=== PATIENT | male | born 1955 | race Caucasian/White ===

== ENCOUNTER 2017-03-27 09:35 | Emergency (ER) | payer BC ==
[2017-03-27 09:57] VITALS: BP 118/74
--- NOTE | 2017-03-27 11:13 | UC ---
Skin Complaint HPI - HPI Summary HPI Summary: Pt c/o gradual onset of itchy, raised rash that began last night. Pt drank a glass of red wine and is concerned that he had an allergic reaction to the wine. Pt reports that he took 1 benadryl PO and rash improved. Pt woke this morning and noted that he had "rash all over his body" took another benadryl and rash resolved. Pt described that at time of rash "all over body" he noted tightness in chest and "itchy" throat. - History of Current Complaint Chief Complaint: UCAllergicReaction Time Seen by Provider: 03/27/17 10:23 Stated Complaint: RASH/DIFFICULTY BREATHING DURING NIGHT Hx Obtained From: Patient Onset/Duration: Gradual Onset, Lasting Hours, Resolved - since taking benadryl Skin Exposure Onset/Duration: Hours Ago Timing: Constant Onset Severity: Moderate Current Severity: None Pain Intensity: 0 Pain Scale Used: 0-10 Numeric Location: Diffuse Character: Hives Aggravating Factor(s): Nothing Alleviating Factor(s): Antihistamines Associated Signs & Symptoms: Positive: Throat Tightening, Rash Related History: Possible Reaction to: Food, Possible Reaction to: Animal, Possible Reaction to: Environmental Exposure - Allergy/Home Medications Allergies/Adverse Reactions: Allergies Allergy/AdvReac Type Severity Reaction Status Date / Time No Known Allergies Allergy Verified 03/27/17 09:46 Home Medications: Home Medications Hydrocortisone 1% CREAM* [Hytone Cream 1%*] 1 applic TOPICAL PRN 03/27/17 [ History] Lactobacillus [Probiotic] 1 cap PO DAILY 03/27/17 [History Confirmed 03/27/17] [id number]-Szhsgptgph-[id number] [Triple Antibiotic] 1 oin EX PRN 03/27/17 [History ] diPHENhydraMINE PO* [Benadryl PO 25 MG TAB*] 25 mg PO Q6H PRN 03/27/17 [History Confirmed 03/27/17] Review of Systems Constitutional: Negative Skin: Rash Eyes: Negative ENT: Negative Respiratory: Negative Cardiovascular: Negative Gastrointestinal: Negative Genitourinary: Negative Motor: Negative Neurovascular: Negative Musculoskeletal: Negative Neurological: Negative Psychological: Negative Is Patient Immunocompromised?: No All Other Systems Reviewed And Are Negative: Yes PMH/Surg Hx/FS Hx/Imm Hx Previously Healthy: Yes - Surgical History Surgical History: None - Family History Known Family History: Positive: Cardiac Disease - Social History Occupation: Employed Full-time Lives: With Family Alcohol Use: Rare Substance Use Type: Marijuana Substance Use Comment - Amount & Last Used: OCCASIONAL Smoking Status (MU): Never Smoked Tobacco Have You Smoked in the Last Year: No - Immunization History Vaccination Up to Date: No Physical Exam Triage Information Reviewed: Yes Appearance: Well-Appearing Vital Signs: Initial Vital Signs Temp 97.1 F 03/27/17 09:50 Pulse 59 03/27/17 09:50 Resp 18 03/27/17 09:50 BP 118/74 03/27/17 09:50 Pulse Ox 100 03/27/17 09:50 Vital Signs Reviewed: Yes Eye Exam: Normal ENT Exam: Normal Dental Exam: Normal Neck exam: Normal Respiratory Exam: Normal Cardiovascular Exam: Normal Abdominal Exam: Normal Musculoskeletal Exam: Normal Neurological Exam: Normal Psychological Exam: Normal Skin Exam: Normal Course/Dx - Course Course Of Treatment: I explained to the pat that he needs to follo annalee wioth his PCP and possibly with an restaurant crew member. I recommnded that he take a daily antihistamine and carry benadryl with him for treatment as needed. - Differential Diagnoses - Skin Complaint Differential Diagnoses: Contact Dermatitis, Urticaria - Diagnoses Provider Diagnoses: generalized allergic reaction Discharge - Discharge Plan Condition: Stable Disposition: HOME Prescriptions: Cetirizine* [ZyrTEC 10 MG TAB*] 10 mg PO DAILY #14 tab Patient Education Materials: General Allergic Reaction (ED) Referrals: Efren Addison MD [Primary Care Provider] - 1 Day Shelly Cuevas MD [Medical Doctor] - As Soon As Possible
== END 2017-03-27 10:58 | disposition home or self-care (01) ==
LOC: UCCORT 09:35
DX: T78.40XA Allergy, unspecified, initial encounter (principal); X58.XXXA Exposure to other specified factors, initial encounter; F12.90 Cannabis use, unspecified, uncomplicated
CPT/HCPCS: 99212; G0463

== ENCOUNTER 2018-04-25 15:23 | Emergency (ER) | payer BC ==
[2018-04-25 16:20] VITALS: BP 130/78
[2018-04-25] MEDS ORDERED: Fluorescein Sodium TOPICAL* 1 MG TEST STRIP OPHTHALMIC ONE (16:49)
--- NOTE | 2018-04-25 17:05 | UC ---
Eye Complaint HPI - HPI Summary HPI Summary: The patient is a 62-year-old male who got something in his eye while working with his horses. He suspects it may have been some maneuver. Initially he had mild photophobia and a foreign body sensation under his left upper lid. He still has some lid edema and some mild foreign body sensation. Eyes any photophobia he has had no tearing or purulent discharge. He has significant itching of his eye. He denies any blurred vision. - History of Current Complaint Chief Complaint: UCEye Stated Complaint: LEFT EYE ISSUE Time Seen by Provider: 04/25/18 16:43 Hx Obtained From: Patient Onset/Duration: Gradual Onset Timing: Constant Severity Initially: Mild Severity Currently: Mild Pain Intensity: 0 Pain Scale Used: 0-10 Numeric Location of Injury: Conjunctiva, Eye Lid (upper) Aggravating Factor(s): Nothing Alleviating Factor(s): Nothing Associated Signs And Symptoms: Positive: Swelling - left upper lid - Allergies/Home Medications Allergies/Adverse Reactions: Allergies Allergy/AdvReac Type Severity Reaction Status Date / Time No Known Allergies Allergy Verified 04/25/18 16:15 PMH/Surg Hx/FS Hx/Imm Hx Previously Healthy: Yes Cardiovascular History: Hypertension - life style controlled - Surgical History Surgical History: None - Family History Known Family History: Positive: Cardiac Disease - Social History Alcohol Use: None Substance Use Type: Marijuana Substance Use Comment - Amount & Last Used: OCCASIONAL Smoking Status (MU): Never Smoked Tobacco Have You Smoked in the Last Year: No - Immunization History Vaccination Up to Date: No Review of Systems All Other Systems Reviewed And Are Negative: Yes Constitutional: Positive: Negative Skin: Positive: Negative Eyes: Positive: Other - left eye itching ENT: Positive: Negative Respiratory: Positive: Negative Cardiovascular: Positive: Negative Gastrointestinal: Positive: Negative Genitourinary: Positive: Negative Motor: Positive: Negative Neurovascular: Positive: Negative Musculoskeletal: Positive: Negative Neurological: Positive: Negative Psychological: Positive: Negative Physical Exam Triage Information Reviewed: Yes Appearance: Well-Appearing, No Pain Distress, Well-Nourished Vital Signs: Initial Vital Signs Temp 97.9 F 04/25/18 16:15 Pulse 55 04/25/18 16:15 Resp 15 04/25/18 16:15 BP 130/78 04/25/18 16:15 Pulse Ox 100 04/25/18 16:15 Vital Signs Reviewed: Yes Eyes: Positive: Conjunctiva Inflamed - left upper palpebral/no fb noted, EOMI/ PERRL, flourescein staining (-) ENT: Positive: Hearing grossly normal. Negative: Nasal congestion, Nasal drainage, Trismus, Muffled voice, Hoarse voice Neck: Positive: Supple, Nontender Respiratory: Positive: Lungs clear, Normal breath sounds, No respiratory distress, No accessory muscle use Cardiovascular: Positive: RRR, No Murmur Musculoskeletal: Positive: ROM Intact, No Edema Neurological: Positive: Alert Psychological Exam: Normal Skin Exam: Normal Eye Complaint Course/Dx - Differential Dx/Diagnosis Provider Diagnosis: Allergic conjunctivitis Discharge - Sign-Out/Discharge Documenting (check all that apply): Patient Departure All imaging exams completed and their final reports reviewed: No Studies - Discharge Plan Condition: Stable Disposition: HOME Prescriptions: Fexofenadine (NF) [Mary (NF)] 60 mg PO QAM PRN #7 tab PRN Reason: Itching Patient Education Materials: Conjunctivitis (ED) Referrals: Efren Luevano MD [Medical Doctor] - 2 Days (if not better) Kiarra Beckford MD [Medical Doctor] - 2 Days (if not better) Additional Instructions: I suspect you have an allergic conjunctivitis to organic matter you got in your eye I suggest ZADITOR EYE DROPS (OTC) I suggest 2 25 mg benadryl at bedtime for itching see an eye MD in 2 days if not better sooner for new or worsening symptoms - Billing Disposition and Condition Condition: STABLE Disposition: Home
== END 2018-04-25 17:17 | disposition home or self-care (01) ==
LOC: UCCORT 15:23
DX: H10.12 Acute atopic conjunctivitis, left eye (principal); I10 Essential (primary) hypertension
CPT/HCPCS: 99212; A9270-GY; G0463

== ENCOUNTER 2018-08-12 14:40 | Emergency (ER) | payer BC ==
--- OUTSIDE RECORDS SUMMARY | 2018-08-12 14:55 | XMS REPORT | Continuity of Care Document ---
:1955 External Reference #:[id number] Author Name Judy Walker Care Team Providers Name Role Phone Efren Addison MD Care Team Information Animal Ecologist Unavailable Efren Addison MD Primary Care Physician Unavailable Payers Date Identification Numbers Payment Provider Subscriber Policy Number: [id number] [employer] Charleen Snider PayID: [id number] [address] [address] [place] [address] Expires: 2017 Policy Number: [id number] [facility] Dontae Snider PayID: [id number] [address] [place] [address] Advance Directives Description No Information Available Problems Description No Information Family History Date Family Member(s) Observation Comments General Diabetes General Hypertension Father due to Natural Causes () Siblings Several Siblings 65 Social History Type Date Description Comments Sex Unknown Marital Status Lives With 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 Tobacco Use Start: Unknown Never Smoked Cigarettes Smoking Status Reviewed: 07/26/18 Never Smoked Cigarettes ETOH Use Has consumed alcohol in the past Tobacco Use Start: Unknown Patient is a current Vapes marijuana once smoker, smokes every a day day Recreational Drug Use Current Drug User vapes marijuana Exercise Type/Frequency Walks daily Exercise Type/Frequency total gym workout and push ups Allergies, Adverse Reactions, Alerts Description No Known Drug Allergies Medications Description No Active Medications Immunizations Description No Information Available Vital Signs Date Vital Result Comment 07/26/2018 1:17pm Height 69 inches 5'9" Weight 187.00 lb Heart Rate 69 /min BP Systolic Sitting 122 mmHg Rue Reg Cuff BP Diastolic Sitting 78 mmHg Rue Reg Cuff Respiratory Rate 16 /min O2 % BldC Oximetry 99 % on Ra BMI (Body Mass Index) 27.6 kg/m2 05/15/2018 2:14pm Height 69 inches 5'9" Weight 186.00 lb Heart Rate 64 /min BP Systolic Sitting 118 mmHg Lue regular cuff BP Diastolic Sitting 86 mmHg Lue regular cuff Respiratory Rate 12 /min O2 % BldC Oximetry 99 % BMI (Body Mass Index) 27.5 kg/m2 Neck Circumference in inches 15.5 Results Description No Information Available Procedures Date Code Description Status 05/16/2018 78147 Sleep Study Unattended,HRT Rate,Oxygen Sat,Resp Completed Effort/Airflow 06/20/2017 05647387 Colonoscopy Completed 11/08/2002 17831 Color Doppler Completed 11/08/2002 20129 Pulse Doppler & Continuous Wave Completed 11/08/2002 74521 Echocardiogram Completed Encounters Type Date Location Provider Dx Diagnosis Office Visit 05/15/2018 [facility] Brandi Villanueva MD R06.83 Snoring 2:[facility] R53.83 Other fatigue Plan of Treatment 07/26/2018 - Poornima Marks DNP, RN, DRIED FRUIT WASHER-[id number] Obstructive sleep apnea ( adult) (pediatric)Comments:Sleep Apnea - 05/16/18 HST AHI 27.5/hour, ira oxygen 81% wt 186, BMI 27.5Follow up:6 weeksRecommendations:Sleep apnea to start PAP at 5-12 cm Review of sleep study in detail. Risks of untreated sleep apnea including cardiovascular events: rhythm irregularities, heart attack , stroke; gastro esophageal reflux disease (GERD); diabetes; anxiety, depression ; high blood pressure; accidents (machinery and automobile) Recommendation for PAP other treatment modalities NON-PAP including oral appliance/mandibular advancement device, positional strategies , and surgery. Referral for PAP device to be sent to [facility] phone: [phone] Equipment appointment will take about 45 minutes, the DME provider will call you within 5 days to set you up for the device. If you do not hear from them callthe Sleep Center. The mask will have a 30-day guarantee, if you have mask problems call the DME provider to have a fitting for a different mask. Need distilled water for humidifier CPAP mask and tubingCleaning Wipe off mask daily (baby wipe -no scent, or warm water) Clean mask, tubing, filter, and water chamber weekly in mild no scent dish soap and water. Hang to dry. If you have problems with theair pressure call the sleep center and speak to a nurse. If you have any further questions, please call the [facility] at [phone]. If you have any sleepiness while driving you MUST avoid operating a vehicle or machinery.G47.14 Hypersomnia due to medical conditionRecommendations:Should improve with treatment of apnea, see assessment #1
[2018-08-12 15:35] VITALS: BP 139/81
--- NOTE | 2018-08-12 16:43 | UC ---
Knee Pain HPI - HPI Summary HPI Summary: Patient has had 10 days of left knee pain, denies any injury, it is hard to bear weight. no swelling or deformity noted. - History of Current Complaint Chief Complaint: UCLowerExtremity Stated Complaint: LEFT KNEE PAIN Time Seen by Provider: 08/12/18 16:09 Hx Obtained From: Patient Onset/Duration: Sudden Onset, Lasting Days - 10 Severity Initially: Mild Severity Currently: Mild Pain Intensity: 0 Character: Aching Aggravating Factor(s): Movement, Weight Bearing, Prolonged Standing, Stairs Alleviating Factor(s): Position Associated Signs And Symptoms: Positive: Negative Able to Bear Weight: Yes - but very painful - Allergies/Home Medications Allergies/Adverse Reactions: Allergies Allergy/AdvReac Type Severity Reaction Status Date / Time No Known Allergies Allergy Verified 08/12/18 15:25 Home Medications: Home Medications NK [No Home Medications Reported] 08/12/18 [History Confirmed 08/12/18] PMH/Surg Hx/FS Hx/Imm Hx Previously Healthy: Yes - Surgical History Surgical History: None - Family History Known Family History: Positive: Cardiac Disease - Social History Alcohol Use: None Substance Use Type: Marijuana Substance Use Comment - Amount & Last Used: OCCASIONAL via vaporizer 08/11/18 Smoking Status (MU): Never Smoked Tobacco Have You Smoked in the Last Year: No - Immunization History Vaccination Up to Date: No Review of Systems All Other Systems Reviewed And Are Negative: Yes Constitutional: Positive: Negative Skin: Positive: Negative Eyes: Positive: Negative ENT: Positive: Negative Respiratory: Positive: Negative Cardiovascular: Positive: Negative Gastrointestinal: Positive: Negative Genitourinary: Positive: Negative Motor: Positive: Negative Neurovascular: Positive: Negative Musculoskeletal: Positive: Arthralgia, Myalgia Neurological: Positive: Negative Psychological: Positive: Negative Is Patient Immunocompromised?: No Physical Exam Triage Information Reviewed: Yes Appearance: Well-Appearing, Well-Nourished, Pain Distress Vital Signs: Initial Vital Signs Temp 97.7 F 08/12/18 15:26 Pulse 67 08/12/18 15:26 Resp 20 08/12/18 15:26 BP 139/81 08/12/18 15:26 Pulse Ox 100 08/12/18 15:26 Vital Signs Reviewed: Yes Eye Exam: Normal ENT Exam: Normal Dental Exam: Normal Neck exam: Normal Respiratory Exam: Normal Cardiovascular Exam: Normal Abdominal Exam: Normal Bowel Sounds: Positive: Present Musculoskeletal: Positive: Strength Intact, ROM Intact, No Edema, Other: - paint with weight bearing and going down stairs, PROM unaffected, RROM causes pain along medial jointline Neurological Exam: Normal Psychological Exam: Normal Skin Exam: Normal Knee Pain Course/Dx - Course Course Of Treatment: hx obtained, exam performed ,meds reviewed, xray obtained, - Differential Dx/Diagnosis Differential Diagnosis/HQI/PQRI: Internal Derangement Of Knee, Patellofemoral Syndrome, Sprain, Strain Provider Diagnosis: Left knee pain Discharge - Sign-Out/Discharge Documenting (check all that apply): Patient Departure All imaging exams completed and their final reports reviewed: Yes - Discharge Plan Condition: Stable Disposition: HOME Patient Education Materials: Knee Pain (ED) Referrals: Efren Addison MD [Primary Care Provider] - Additional Instructions: 1. use the shilpa wrap and crutches to rest the knee 2. ICe or heat as tolerated 3. Ibuprofen 600 mg every 6 hours as needed for pain 4. Follow up with Dr Kuo for further evaluation - Billing Disposition and Condition Condition: STABLE Disposition: Home
== END 2018-08-12 17:22 | disposition home or self-care (01) ==
LOC: UCCORT 14:40
DX: M25.562 Pain in left knee (principal)
CPT/HCPCS: 99212; G0463

== ENCOUNTER 2019-07-05 16:58 | Emergency (ER) | payer BC ==
[2019-07-05 17:38] VITALS: BP 141/88
--- NOTE | 2019-07-05 18:30 | UC ---
FLU HPI - HPI Summary HPI Summary: Patient is a 63yo male presenting with fatigue since yesterday and "constant chills" since this morning. Patient states he has "been so sleepy he can hardly get out of bed the past two days which is very unusual for him." Denies nasal congestion, sore throat, and cough. Denies known fever. Notes nausea yesterday but no vomiting. Normal appetite. Denies taking anything for symptom relief. States he would like to be tested for the flu. Denies PMH and does not take any daily medications. - History of Current Complaint Chief Complaint: UCGeneralIllness Stated Complaint: CHILLS, TIRED Hx Obtained From: Patient Pain Intensity: 0 - Allergy/Home Medications Allergies/Adverse Reactions: Allergies Allergy/AdvReac Type Severity Reaction Status Date / Time No Known Allergies Allergy Verified 07/05/19 17:36 Home Medications: Home Medications NK [No Home Medications Reported] 08/12/18 [History Confirmed 07/05/19] PMH/Surg Hx/FS Hx/Imm Hx Previously Healthy: Yes - Surgical History Surgical History: Yes Surgery Procedure, Year, and Place: HYDROCELE - ABOUT 15 YRS + - Family History Known Family History: Positive: Cardiac Disease - Social History Alcohol Use: None Substance Use Type: None Substance Use Comment - Amount & Last Used: OCCASIONAL via vaporizer 08/11/18 Smoking Status (MU): Never Smoked Tobacco Have You Smoked in the Last Year: No - Immunization History Vaccination Up to Date: No Review of Systems All Other Systems Reviewed And Are Negative: Yes Constitutional: Positive: Chills, Fatigue. Negative: Fever ENT: Positive: Negative Respiratory: Positive: Negative Cardiovascular: Positive: Negative Gastrointestinal: Positive: Nausea - yesterday. Negative: Abdominal Pain, Vomiting, Diarrhea Genitourinary: Positive: Negative Musculoskeletal: Positive: Negative Neurological/Mental Status: Positive: Negative Physical Exam - Summary Physical Exam Summary: Vital Signs Reviewed: Yes A+Ox3, no distress, well-appearing Eyes: Conjunctiva clear ENT: Hearing grossly normal, TM x 2 clear, moist, uvula midline, no exudate, no erythema Neck: Positive: Supple Respiratory: Positive: No respiratory distress, No accessory muscle use + CTA throughout no w/r Cardiovascular: RRR nl s1, s2 no m/r Musculoskeletal Exam: WELCH x 4 without difficulty Neurological: Positive: Alert Psychological: Positive: age appropriate behavior Skin: Positive: no rash, no ecchymosis Vital Signs: Initial Vital Signs Temp 97.6 F 07/05/19 17:35 Pulse 57 07/05/19 17:35 Resp 13 07/05/19 17:35 BP 141/88 07/05/19 17:35 Pulse Ox 100 07/05/19 17:35 Lab Results 07/05/19 Range/Units 18:57 Influenza A (Rapid) Negative (Negative) Influenza B (Rapid) Negative (Negative) Flu Course/Dx - Course Course Of Treatment: Negative rapid flu. Patient well-appearing and vital signs normal. Physical exam WNL. Discussed likely viral etiology of symptoms and instructed to continue symptomatic treatment. Instructed to follow up with PCP if symptoms do not resolve within 7 days. Instructed to go to the ED with any new or worsening symptoms. Patient voiced understanding and agreed with the treatment plan. - Differential Dx/Diagnosis Provider Diagnosis: Chills without fever, Fatigue Discharge ED - Sign-Out/Discharge Documenting (check all that apply): Patient Departure All imaging exams completed and their final reports reviewed: No Studies - Discharge Plan Condition: Stable Disposition: HOME Patient Education Materials: Viral Syndrome (ED) Referrals: Efren Addison MD [Primary Care Provider] - If Needed Additional Instructions: Your flu test was negative today. Your symptoms are likely caused by a virus and should resolve without treatment. Continue to get plenty of rest and fluids. Follow up with your primary care provider if symptoms do not improve within 7 days. Go to the emergency room with any new or worsening symptoms. - Billing Disposition and Condition Condition: STABLE Disposition: Home - Attestation Statements Provider Attestation: Per institutional requirements, I have reviewed the chart, however, I was not consulted specifically or made aware of this patient by the midlevel provider. I did not personally evaluate, interact with, or disposition this patient. EK
[2019-07-05 19:08] LABS: Influenza A Molecular Negative (Negative); Influenza B Molecular Negative (Negative)
== END 2019-07-05 19:25 | disposition home or self-care (01) ==
LOC: UCCORT 16:58
DX: R53.83 Other fatigue (principal); R68.83 Chills (without fever); R11.0 Nausea
CPT/HCPCS: 99211; G0463